=== PATIENT | male | born 1965 | race Caucasian/White ===

== ENCOUNTER 2022-10-11 15:45 | Emergency (ER) | payer OTHER ==
[2022-10-11] MEDS ORDERED: methylPREDNISolone Sodium Succinate 125 MG/2 ML SDV IVPUSH ONE (16:39)
[2022-10-11] MEDS ORDERED: Ondansetron 4 MG/2 ML SDV IVPUSH ONE (16:39)
[2022-10-11] MEDS ORDERED: Sodium Chloride 0.9% 10 ML Syringe FLUSH PRN (16:40)
[2022-10-11] MEDS ORDERED: Sodium Chloride 0.9% 1,000 ML IV SCH (16:45)
[2022-10-11] MEDS ORDERED: Meclizine 12.5 MG Tab PO ONE (17:53)
== END 2022-10-11 19:25 | disposition home or self-care (01) ==
LOC: JD.ED 15:45
DX: R42 Dizziness and giddiness (principal); I10 Essential (primary) hypertension; R26.89 Other abnormalities of gait and mobility
CPT/HCPCS: 36415; 70450; 80053; 85025; 96361; 96374; 96375; 99284; A9270; J2405; J2930; J3360; J3490; J7030

== ENCOUNTER 2022-10-17 18:49 | Emergency (ER) | payer OTHER ==
[2022-10-17] MEDS ORDERED: Sodium Chloride 0.9% 1,000 ML IV STA (19:57)
[2022-10-17 20:30] LABS: ESTIMATED GFR 47 mL/min (>60)
[2022-10-17] MEDS ORDERED: Iopamidol 755 Mg/ML 100 ML Bottle IVPUSH ONE (20:40)
== END 2022-10-17 21:40 | disposition home or self-care (01) ==
LOC: JD.ED 18:49
DX: I63.9 Cerebral infarction, unspecified (principal); I10 Essential (primary) hypertension; F17.210 Nicotine dependence, cigarettes, uncomplicated; Z86.16 Personal history of COVID-19
CPT/HCPCS: 36415; 70496; 70553; 80053; 85025; 96360; 99284; A9577; J3490; J7030; Q9967